=== PATIENT | female | born 1970 | race Caucasian/White ===

== ENCOUNTER 2017-04-17 15:29 | Emergency (ER) | payer OTHER ==
[~2017-04-17] VITALS: Ht 157.5 cm; Wt 124.7 kg
[2017-04-17 15:37] VITALS: BP 160/87
--- NOTE | 2017-04-17 17:37 | ED ANIMAL BITE/WOUND CHECK ---
History of Present Illness General Chief Complaint: Animal/Insect Bite Stated Complaint: DOG BITE Source: patient Exam Limitations: no limitations Vital Signs & Intake/Output Vital Signs & Intake/Output Vital Signs Date Time Temp Pulse Resp B/P B/P Pulse O2 O2 Flow FiO2 Mean Ox Delivery Rate 04/17 1537 98.1 77 18 160/87 94 Room Air Allergies Coded Allergies: Penicillins (Intermediate, hives 04/17/17) shellfish derived (ANAPHYLAXIS 04/17/17) Uncoded Allergies: FRUIT SKINS (TONGUE SWELL AND GO NUMB 04/17/17) Reconcile Medications Atorvastatin Calcium 20 MG TABLET 1 TAB PO DAILY CHOLESTEROL (Reported) Carvedilol 25 MG TABLET 1 TAB PO BID HEART/BP (Reported) Doxycycline Hyclate 100 MG TABLET 1 TAB PO BID dog bite Empagliflozin (Jardiance) 25 MG TABLET 1 TAB PO DAILY DM (Reported) Furosemide 40 MG TABLET 1 TAB PO BID DIURETIC (Reported) Glipizide (Unknown Strength) TABLET (Unknown Dose) PO BID DM (Reported) Lisinopril 5 MG TABLET 1 TAB PO DAILY BP (Reported) Metformin HCl (Metformin HCl ER) 1,000 MG TAB.ER.24 1 TAB PO BID DM (Reported ) Metronidazole (Flagyl) 500 MG TABLET 1 TAB PO TID dog bite Triage Note: PT TO ER C/C PUNCTURE WOUNDS TO RIGHT HAND/WRIST SUSTAINED FROM HER DOG. PATIENT STATES HER TWO DALMATIONS WERE FIGHTING, SHE WAS BIT IN THE PROCESS OF BREAKING UP THE FIGHT. BLEEDING CONTROLLED. STATES DOGS ARE UP TO DATE ON VACCINATIONS, UNSURE OF DATE OF HER LAST TETANUS INJ. DRESSING APPLIED IN TRIAGE, BLEEDING CONTROLLED. Triage Nurses Notes Reviewed? yes Onset: Abrupt Duration: hour(s): Timing: single episode today Injury Environment: home Is Injury an Animal Bite? Yes Animal Type: dog Context of Animal Attack: animals fighting Appearance of Animal: appeared well Animal Immunization Status: up to date Severity of Attack: bitten Severity: moderate Severity Numbers: 5 HPI: 46yo female with hx of DM presents to ED complaining of animal bite to right wrist 2 hours ago. Patient reports pain is 5/10, throbbing, constant. Patient reports her dalmations were fighting and patient was trying to separate the dogs when one dog bit her right wrist. PAtient was able to control bleeding at home. Patient is unsure of when her last tetanus vaccine was. Patient's dogs have their rabbies vaccines and were behaving normally today. (Lana Barajas) Past History Travel History Traveled to [place] past 21 day No Medical History Any Pertinent Medical History? see below for history Cardiovascular: hyperlipidemia Endocrine: diabetes Surgical History Surgical History: non-contributory Psychosocial History Who do you live with Spouse Services at Home None What is your primary language Maltese Tobacco Use: Current Daily Use Daily Tobacco Use Amount/Type: => 5 Cigarettes daily Family History Family History, If Any: Relation not specified for: FHx: diabetes mellitus FHx: heart disease Hx Contributory? No (Lana Barajas) Review of Systems Review of Systems Constitutional: Reports: no symptoms. EENTM: Reports: no symptoms. Respiratory: Reports: no symptoms. Cardiovascular: Reports: no symptoms. GI: Reports: no symptoms. Genitourinary: Reports: no symptoms. Musculoskeletal: Reports: see HPI. Skin: Reports: see HPI. Neurological/Psychological: Reports: no symptoms. Hematologic/Endocrine: Reports: no symptoms. Immunologic/Allergic: Reports: no symptoms. All Other Systems: Reviewed and Negative (Lana Barajas) Physical Exam Physical Exam General Appearance: well developed/nourished, no apparent distress, alert, awake Head: atraumatic, normal appearance Eyes: Bilateral: normal appearance. Ears, Nose, Throat: hearing grossly normal Neck: normal inspection, supple, full range of motion Respiratory: no respiratory distress Peripheral Pulses: 2+ radial (R) Back: normal inspection, normal range of motion Extremities: normal range of motion Skin: RIGHT WRIST: 3 cm laceration to dorsal wrist, 1cm laceration to dorsal wrist, mild abrasion to anterior wrist, RIGHT HAND: mild swelling and tenderness to dorsal hand (Lana Barajas) Progress Differential Diagnosis: fracture, dog bite, lateration, abrasion, tendon injury, sprain Plan of Care: Current Medications Sig/Evelyn Start time Last Medication Dose Stop Time Status Admin Lidocaine 20 ML ONCE ONE 04/17 1829 AC (Lidocaine 1%) 04/17 1830 Patient was offered hand x-ray to evaluate given her pain and swelling dislocation however she declines at this time. Wound irrigated extensively. 2 stitches placed to approximate wound however wound left partially open to allow for drainage. Patient informed that despite antibiotic use there is a possibility that skin may become infected. She was educated on signs and symptoms of infection and when to return to emergency department. Otherwise she will follow-up in 7-10 days for removal of stitches. Patient started on Flagyl and doxycycline given penicillin allergy. Patient in no acute distress, nontoxic appearing. The patient agrees with the plan of care. (Lana Barajas) Departure Departure Disposition: HOME OR SELF CARE Condition: Stable Clinical Impression Primary Impression: Dog bite of wrist Qualifiers: Encounter type: initial encounter Laterality: right Qualified Codes : S61.551A - Open bite of right wrist, initial encounter; W54.0XXA - Bitten by dog, initial encounter Secondary Impressions: Laceration Referrals: Fernanda MILLER,Glenny Elmore (PCP/Family) Additional Instructions: Take full course of antibiotics. Return in 7-10 days for removal of stitches. Monitor for signs of infection such as redness, swelling, increasing pain, cloudy drainage from wound. Return sooner with any of these symptoms or other concerns. Please note that there might be incidental findings in your evaluation that are unrelated to the current emergency department visit. Please notify your primary care doctor about this emergency department visit in order to obtain and review all of the testing performed so that these incidental findings can be monitored as needed. If you had an x-ray performed, please understand that some fractures may not be seen on the initial set of x-rays. If your symptoms persist you might need a repeat set of x-rays to check for such a fracture. If you had a laceration evaluated, please understand that foreign bodies such as glass or wood may not be visible to the naked eye or on plain x-rays. If the wound becomes red, swollen, increasingly more painful or if there is any drainage from the wound, please have it reevaluated by a physician for the possibility of a retained foreign body. If you're unable to follow up as outlined in the discharge instructions please return to the emergency department. Thank you for choosing the [facility] Emergency Department for your care. It was a pleasure to serve you today. Departure Forms: Customer Survey General Discharge Information Prescriptions: Current Visit Scripts Doxycycline Hyclate 1 TAB PO BID #20 TAB Metronidazole (Flagyl) 1 TAB PO TID #30 TAB (Lana Barajas) PA/SECOND CUTTER Co-Sign Statement Statement: ED Attending supervision documentation- [] I saw and evaluated the patient. I have also reviewed all the pertinent lab results and diagnostic results. I agree with the findings and the plan of care as documented in the PA's/SECOND CUTTER's documentation. [X] I have reviewed the ED Record and agree with the PA's/SECOND CUTTER's documentation. [] Additions or exceptions (if any) to the PAs/SECOND CUTTER's note and plan are summarized below: [] (Yuridia MILLER,Kelli) Procedures Laceration/Wound Repair Laceration/Wound Repair: Wound Location: RIGHT WRIST Wound's Depth, Shape: linear Wound Length (cm): 3 Wound Explored: irrigated extensively Irrigated w/ Saline (ccs): 800 Betadine Prep? Yes Anesthesia: 1% lidocaine Volume Anesthetic (ccs): 5 Wound Repaired With: sutures Suture Size/Type: 4:0 Number of Sutures: 2 Layer Closure? No Date of Last Tetanus: 04/17/17 Tetanus Status: up to date Progress: Procedure performed by PA student with my direct supervision. 2 stitches placed to approximate wound. Patient tolerated procedure well. (Maribeth ESCUDERO,Lana Hamm)
[2017-04-17] MEDS ORDERED: METFORMIN HCL1000 M2 PO (17:40)
[2017-04-17] MEDS ORDERED: GLIPIZIDE5 M2 PO (17:40)
[2017-04-17] MEDS ORDERED: CARVEDILOL25 M1 PO (17:41)
[2017-04-17] MEDS ORDERED: JARDIANCE25 M1 PO (17:41)
[2017-04-17] MEDS ORDERED: LISINOPRIL5 M1 PO (17:41)
[2017-04-17] MEDS ORDERED: FUROSEMIDE40 M1 PO (17:41)
[2017-04-17] MEDS ORDERED: ATORVASTATIN CA20 M1 PO (17:41)
[2017-04-17] MEDS ORDERED: DOXYCYCLINE HY100 M4 PO (18:48)
[2017-04-17] MEDS ORDERED: FLAGYL500 MG PO (18:48)
== END 2017-04-17 19:16 ==
LOC: ERH 15:29
DX: S61.551A Open bite of right wrist, initial encounter (principal); W54.0XXA Bitten by dog, initial encounter; Y93.89 Activity, other specified; Y92.009 Unspecified place in unspecified non-institutional (private) residence as the place of occurrence of the external cause
CPT/HCPCS: 90471; 90714